=== PATIENT | female | born 1970 | race Hispanic/Latino ===

== ENCOUNTER 2017-02-14 01:46 | Emergency (ER) | payer OTHER ==
[2017-02-14 03:49] VITALS: RESP 18; TEMP 99.3
[2017-02-14 03:50] VITALS: BMI 34.2
--- NOTE | 2017-02-14 03:59 | ED PDOC ---
Arrival/HPI - General Chief Complaint: Medical Clearance Time Seen by Provider: 02/14/17 03:44 Historian: Patient - History of Present Illness Narrative History of Present Illness (Text): 02/14/17 03:56 Shane Garcia is a 46 year old female, whose past medical history includes diabetes, who presents to the ED complaining of a fever of 103 since 22 :30 yesterday. Patient reports associated chills, diffuse body aches, and dizziness. Patient states she did not have an influenza vaccination this year. Patient denies any sore throat, chest pain, shortness of breath, nausea, vomiting, diarrhea, urinary symptoms, back pain, neck pain, headache, or any other complaints. Time/Duration: Other (yesterday) Symptom Onset: Gradual Symptom Course: Unchanged Activities at Onset: Rest, Light Context: Home Past Medical History - Provider Review Nursing Documentation Reviewed: Yes - Cardiac Hx Hypertension: Yes - Pulmonary Hx Respiratory Disorders: No - Neurological Hx Neurological Disorder: No - HEENT Hx HEENT Disorder: No - Renal Hx Renal Disorder: No - Endocrine/Metabolic Hx Diabetes Mellitus Type 2: Yes - Hematological/Oncological Hx Blood Disorders: No - Integumentary Hx Dermatological Disorder: No - Musculoskeletal/Rheumatological Hx Musculoskeletal Disorders: No - Gastrointestinal Hx Gastrointestinal Disorders: No - Genitourinary/Gynecological Hx Genitourinary Disorders: No - Psychiatric Hx Psychophysiologic Disorder: No Hx Depression: No Hx Emotional Abuse: No Hx Physical Abuse: No Hx Substance Use: No - Surgical History Hx Section: Yes (x3) - Suicidal Assessment Feels Threatened In Home Enviroment: No Family/Social History - Physician Review Nursing Documentation Reviewed: Yes Family/Social History: No Known Family HX Smoking Status: Former Smoker Hx Alcohol Use: No Hx Substance Use: No Allergies/Home Meds Allergies/Adverse Reactions: Allergies No Known Allergies Allergy (Verified 02/14/17 03:45) per patient Home Medications: Home Meds Medication Instructions Recorded Confirmed Aspirin [Aspir 81] 81 mg PO DAILY 03/02/14 02/14/17 Atorvastatin Calcium [Lipitor] 20 mg PO DAILY 03/02/14 02/14/17 Glyburide/Metformin HCl 2 tab PO BID 03/02/14 02/14/17 [Glyburide-Metformin 5-500 mg] Insulin Detemir [Levemir] 30 unit SC HS 03/02/14 02/14/17 Valsartan [Diovan] 320 mg PO 02/14/17 Review of Systems - Physician Review All systems were reviewed & negative as marked: Yes - Review of Systems Constitutional: Fevers, Other (+chills) Eyes: Normal ENT: Normal. absent: Sore Throat Respiratory: Normal. absent: SOB, Cough Cardiovascular: Normal. absent: Chest Pain Gastrointestinal: Normal. absent: Abdominal Pain, Diarrhea, Nausea, Vomiting Genitourinary Female: Normal. absent: Dysuria, Frequency, Hematuria, Urine Output Changes Musculoskeletal: Myalgias (+body aches). absent: Back Pain, Neck Pain Skin: Normal. absent: Rash Neurological: Dizziness. absent: Headache Endocrine: Normal Hemo/Lymphatic: Normal Psychiatric: Normal Physical Exam Vital Signs Reviewed: Yes Vital Signs Temp Pulse Resp BP Pulse Ox 02/14/17 07:09 90 18 110/68 98 02/14/17 05:55 89 18 90/60 L 98 02/14/17 03:48 99.3 F 98 H 18 94/52 L 95 Temperature: Afebrile Blood Pressure: Normal Pulse: Regular Respiratory Rate: Normal Appearance: Positive for: Well-Appearing, Non-Toxic, Comfortable Pain Distress: None Mental Status: Positive for: Alert and Oriented X 3 - Systems Exam Head: Present: Atraumatic, Normocephalic Pupils: Present: PERRL Extroacular Muscles: Present: EOMI Conjunctiva: Present: Normal Mouth: Present: Moist Mucous Membranes Neck: Present: Normal Range of Motion Respiratory/Chest: Present: Clear to Auscultation, Good Air Exchange. No: Respiratory Distress, Accessory Muscle Use Cardiovascular: Present: Regular Rate and Rhythm, Normal S1, S2. No: Murmurs Abdomen: Present: Normal Bowel Sounds. No: Tenderness, Distention, Peritoneal Signs Back: Present: Normal Inspection Upper Extremity: Present: Normal Inspection. No: Cyanosis, Edema Lower Extremity: Present: Normal Inspection. No: Edema Neurological: Present: GCS=15, CN II-XII Intact, Speech Normal Skin: Present: Warm, Dry, Normal Color. No: Rashes Psychiatric: Present: Alert, Oriented x 3, Normal Insight, Normal Concentration Medical Decision Making ED Course and Treatment: 02/14/17 03:56 Impression: 46 year old female complaining of fever, chills, body aches and dizziness since 22:30. Differential Diagnosis include but are not limited to: influenza vs. viral syndrome vs. electrolyte imbalance vs. febrile illness Plan: --EKG -- Labs, rapid influenza -- UA -- Reassess and disposition Prior Visits: Notes and results from previous visits were reviewed. Progress Notes: 02/14/17 04:38 Reviewed EKG, NSR at [address] bpm[address] Non-specific ST/T wave changes. - Lab Interpretations Microbiology Results: Microbiology Results 02/14/17 04:30 Urine,Clean Catch Urine Culture - Final Escherichia Coli Lab Results: 02/14/17 04:18 02/14/17 04:18 Lab Results 02/14/17 04:18: WBC 6.1 D, RBC 3.94, Hgb 10.4 L, Hct 31.9 L, MCV 81.0, MCH 26.4 , MCHC 32.6, RDW 14.1, Plt Count 181, MPV 9.8, Gran % 87.6 H, Lymph % (Auto) 5.2 L, [place] % (Auto) 6.7 H, Eos % (Auto) 0.3 L, Baso % (Auto) 0.2, Gran # 5.35, Lymph # 0.3 L, [place] # 0.4, Eos # 0.0, Baso # 0.01, Sodium 133, Potassium 3.6, Chloride 99, Carbon Dioxide 24, Anion Gap 14, BUN 19, Creatinine 0.9, Est GFR ( Amer) > 60, Est GFR (Non-Af Amer) > 60, Random Glucose 353 H* D, Calcium 9.1, Total Bilirubin 1.1, AST 24, ALT 32, Alkaline Phosphatase 59, Total Protein 7.0, Albumin 3.7, Globulin 3.3, Albumin/Globulin Ratio 1.1, Urine Color Yellow, Urine Appearance Slight-cloudy, Urine pH 6.0, Ur Specific [place] 1.010, Urine Protein Trace H, Urine Glucose (UA) >=1000, Urine Ketones Negative , Urine Blood Large H, Urine Nitrate Positive H, Urine Bilirubin Negative, Urine Urobilinogen 0.2, Ur Leukocyte Esterase Negative, Urine RBC 5 - 10, Urine WBC 2 - 5, Ur Epithelial Cells 0 - 2, Urine Bacteria Small, Influenza Typ A,B ( EIA) Negative for flu a/b - Medication Orders Current Medication Orders: Discontinued Medications Cephalexin Monohydrate (Keflex) 500 mg PO STAT STA PRN Reason: Protocol Stop: 02/14/17 06:00 Last Admin: 02/14/17 06:19 Dose: 500 MG Sodium Chloride (Sodium Chloride 0.9%) 1,000 mls @ 1,000 mls/hr IV .Q1H ANN Last Admin: 02/14/17 06:20 Dose: 1,000 MLS/HR eMAR Start Stop Document 02/14/17 06:20 SB (Rec: 02/14/17 06:20 SB [id number]) Intravenous Solution Start Date 02/14/17 Start Time 06:20 End Date 02/14/17 - Scribe Statement The provider has reviewed the documentation as recorded by the Marguerite Gaona Provider Attestation: All medical record entries made by the Sergeiblarry were at my direction and personally dictated by me. I have reviewed the chart and agree that the record accurately reflects my personal performance of the history, physical exam, medical decision making, and the department course for this patient. I have also personally directed, reviewed, and agree with the discharge instructions and disposition. Disposition/Present on Arrival - Present on Arrival Any Indicators Present on Arrival: No History of DVT/PE: No History of Uncontrolled Diabetes: Yes Urinary Catheter: No History of Decub. Ulcer: No History Surgical Site Infection Following: None - Disposition Have Diagnosis and Disposition been Completed?: Yes Diagnosis: Urinary tract infection Disposition: HOME/ ROUTINE Disposition Time: 07:00 Condition: GOOD Discharge Instructions (ExitCare): Urinary Tract Infection in Women (ED) Prescriptions: Cephalexin [Keflex] 500 mg PO BID #14 capsule
[2017-02-14 04:23] LABS: ADD MANUAL DIFF? NO
[2017-02-14 04:28] LABS: BASO # 0.01 K/mm3 (0.0-2.0); BASO % 0.2 % (0.0-3.0); EOS % 0.3 % (1.5-5.0); GRAN # 5.35 (1.4-6.5); GRAN % 87.6 % (50.0-68.0); HEMATOCRIT 31.9 % (36.0-48.0); LYMPH # 0.3 (1.2-3.4); LYMPH % 5.2 % (22.0-35.0); MEAN CORPUSCULAR HEMOGLOBIN 26.4 pg (25.0-35.0); MEAN CORPUSCULAR HGB CONC 32.6 g/dl (31.0-37.0); MEAN PLATELET VOLUME 9.8 fl (7.0-11.0); MONO # 0.4 (0.1-0.6); MONO % 6.7 % (1.0-6.0); PLATELET COUNT 181 10^3/uL (120.0-450.0); RED CELL DISTRIBUTION WIDTH 14.1 % (11.5-14.5); WHITE BLOOD COUNT 6.1 10^3/ul (4.5-11.0)
[2017-02-14 04:30] LABS: URINE BILIRUBIN NEGATIVE (NEGATIVE); URINE BLOOD LARGE (NEGATIVE); URINE GLUCOSE (UA) >=1000 mg/dL (NEGATIVE); URINE KETONE NEGATIVE (NEGATIVE); URINE LEUKOCYTE ESTERASE NEGATIVE Leu/uL (NEGATIVE); URINE PROTEIN TRACE mg/dL (<30 mg/dL); URINE UROBILINOGEN 0.2 E.U./dL (<1 E.U./dL)
[2017-02-14 04:31] LABS: URINE APPEARANCE SLIGHT-CLOUDY (CLEAR); URINE COLOR YELLOW (YELLOW)
[2017-02-14 04:38] LABS: ALB/GLOB RATIO 1.1 (1.1-1.8); ALKALINE PHOSPHATASE 59 U/L (38-133); ALT/SGPT 32 U/L (7-56); AST/SGOT 24 U/L (15-39); BILIRUBIN,TOTAL 1.1 mg/dL (0.2-1.3); BLOOD UREA NITROGEN 19 mg/dL (7-21); CALCIUM 9.1 mg/dL (8.4-10.5); CARBON DIOXIDE 24 mmol/L (21-33); CHLORIDE 99 mmol/L (95-110); GFR AFRICAN-AMERICAN > 60; POTASSIUM 3.6 mmol/L (3.6-5.0); SODIUM 133 mmol/L (132-148)
[2017-02-14 04:46] LABS: URINE BACTERIA SMALL (NEG); URINE EPITHELIAL CELLS 0 - 2 /hpf (0-5)
[2017-02-14 04:48] LABS: GLUCOSE,RANDOM 353 mg/dL (70-110)
[2017-02-14 06:05] VITALS: O2SAT 98
[2017-02-14] MEDS ORDERED: Sodium Chloride 0.9% 1,000 ML IV SCH (06:15)
[2017-02-14 07:09] VITALS: BP 110/68; PULSE 90
--- NOTE | 2017-02-14 19:01 | CARD ---
APPROVED REPORT EKG Measurement Heart [id number] <Conclusion> Normal sinus rhythm Inferior infarct, age undetermined Abnormal ECG
== END 2017-02-14 07:16 | disposition home or self-care (01) ==
LOC: ED 01:46
DX: N39.0 Urinary tract infection, site not specified (principal); Z87.891 Personal history of nicotine dependence; E11.9 Type 2 diabetes mellitus without complications; I10 Essential (primary) hypertension
CPT/HCPCS: 80053; 81001; 85025; 87086; 87181; 87804; 93005; 99283; J7040

== ENCOUNTER 2018-12-14 07:29 | Outpatient (CLI) | payer OTHER | END 2018-12-14 07:30 | disposition home or self-care (01) | LOC: LAB 07:29 ==

== ENCOUNTER 2019-03-01 07:08 | Outpatient (CLI) | payer OTHER | END 2019-03-01 07:09 | disposition home or self-care (01) | LOC: RAD 07:08 ==

== ENCOUNTER 2019-03-22 07:07 | Outpatient (CLI) | payer OTHER | END 2019-03-22 07:08 | disposition home or self-care (01) | LOC: LAB 07:07 ==